=== PATIENT | male | born 1950 | race Caucasian/White ===

== ENCOUNTER → 2017-11-04 | Outpatient (CLI) | payer OTHER ==
[2015-02-20 16:09] VITALS: BP 124/70
[~2017-11-04] MED LIST: AMLO10TA6 PO; ASPI-612 PO; LISI-334 PO
--- NOTE | 2017-11-04 16:40 | KCIC ---
EXAM: AP, oblique and lateral views of the left ankle DATE: 11/04/2017 12:00 AM INDICATION: Chronic left ankle pain and swelling. No injury COMPARISON: No Prior FINDINGS/ IMPRESSION: No evidence of acute fracture or dislocation. Talar tilt with left knee joint degenerative change resulting in lateral tibiotalar joint space narrowing and widening of the lateral mortise. Proliferative changes are seen at the inferior pole of the medial malleolus likely from old injury. Small anterior ankle joint osteophytes are seen. Small midfoot osteophytes are also noted. Electronically signed by: Jose Juan Benson MD (11/04/2017 4:36 PM) [facility]
== END | disposition home or self-care (01) ==
LOC: KCIC 15:40
PROVIDERS: ATTEND Family Medicine
DX: M25.775 Osteophyte, left foot (principal); M25.772 Osteophyte, left ankle; M19.072 Primary osteoarthritis, left ankle and foot; I10 Essential (primary) hypertension; Z82.49 Family history of ischemic heart disease and other diseases of the circulatory system; Z83.3 Family history of diabetes mellitus; Z80.7 Family history of other malignant neoplasms of lymphoid, hematopoietic and related tissues
CPT/HCPCS: 73610

== ENCOUNTER → 2018-12-01 | Outpatient (CLI) | payer MEDICARE ==
[2015-02-20 16:09] VITALS: BP 124/70
[~2018-12-01] MED LIST changes: -AMLO10TA6 PO; +AMLO10TA8 PO
--- NOTE | 2018-12-01 17:26 | KCIC ---
CT study of the right foot without contrast CT study of the right ankle without contrast Clinical indications: Patient feels a bump on foot. Right foot pain. TECHNIQUE: Noncontrast helical CT scanning of the right foot and ankle were performed. Multiplanar 2-D reconstructions were generated. PQRS compliance Statement One or more of the following individualized dose reduction techniques were utilized for this study: 1. Automated exposure control 2. Adjustment of the mA and/or kV according to patient size 3. Use of iterative reconstruction technique CT STUDY OF THE RIGHT ANKLE: No acute fracture or dislocation or lytic process is seen. Mortise ankle joint is intact. There is mild degenerative spurring of the tibiotalar joint compartment. An os trigonum is seen as a normal anatomical variant. However, there is a small radiopaque loose body within the posterior tibiotalar joint recess measuring 5 mm. There is mild degenerative spurring of the talofibular joint compartment. There is a small loose body just lateral to the talus and distal to the right fibula measuring 1.5 mm. The Achilles tendon is intact. No soft tissue mass or abscess is seen. IMPRESSION: No acute osseous abnormality. 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 CT STUDY OF THE RIGHT FOOT: A BB is placed on the palpable lump of the right foot. This corresponds to a ganglion cyst measuring 7 Hounsfield units. It measures 2.6 cm in transverse dimension and 1.2 cm in AP dimension and 3.0 cm in longitudinal dimension. It is contiguous with the extensor hallucis longus tendon. No acute fracture or dislocation or lytic process is evident. No periosteal reaction is evident. There is degenerative osteoarthritis of the first and second and third tarsal metatarsal joints. There are degenerative cysts of the proximal second metatarsal bone and the distal second cuneiform bone. There is mild degenerative spurring of the talonavicular joint and the navicular cuneiform joint. Mild degenerative spurring of the fourth tarsal metatarsal joint is seen. There is moderate degenerative spurring and joint space narrowing of the first metatarsal phalangeal joint and the joint space between the distal first metatarsal bone and the sesamoid bones. There is a bipartite medial sesamoid bone which is a normal anatomical variant. No erosive arthropathy is evident. There is mild degenerative osteoarthritis of the posterior subtalar joint and the anteromedial subtalar joint. Small plantar spur of the calcaneus is seen. Small posterior spur of the calcaneus is seen at the attachment of the Achilles tendon. No osseous tarsal coalition is seen. IMPRESSION: Palpable lump of the dorsal aspect of the right foot corresponds to a ganglion cyst. Primary degenerative osteoarthritis of multiple joints as discussed above. No acute fracture. Electronically signed by: Tex Head MD (12/01/2018 5:23 PM) [facility]
== END | disposition home or self-care (01) ==
LOC: KCIC CT 12:52
PROVIDERS: ATTEND Family Medicine
DX: M19.071 Primary osteoarthritis, right ankle and foot (principal); M67.471 Ganglion, right ankle and foot; M77.31 Calcaneal spur, right foot
CPT/HCPCS: 73700

== ENCOUNTER → 2020-11-22 | Outpatient (CLI) | payer MEDICARE ==
[2015-02-20 16:09] VITALS: BP 124/70
[~2020-11-22] MED LIST changes: +AMLO-187 PO; -AMLO10TA8 PO; -ASPI-612 PO; +ASPI-886 PO; -LISI-334 PO; +LISI20TA18 PO
--- NOTE | 2020-11-22 16:15 | CARD ---
MR#: [id number] Date of Study: 11/22/2020 Ordering Physician: JAMAL MAHMOOD, Referring Physician: JAMAL MAHMOOD Tech: Elly Kuo [facility] APPROVED REPORT EXAM: Two-dimensional and M-mode echocardiogram with Doppler and color Doppler. Other Information Quality : AverageHR: 52bpm Rhythm : NSR INDICATION Dyspnea RISK FACTORS Hypertension Obesity 2D DIMENSIONS RVDd5.0 (2.9-3.5cm)Left Atrium(2D)4.5 (1.6-4.0cm) IVSd1.4 (0.7-1.1cm)Aortic Root(2D)4.2 (2.0-3.7cm) LVDd5.7 (3.9-5.9cm)LVOT Diameter2.9 (1.8-2.4cm) PWd1.4 (0.7-1.1cm)LVDs3.0 (2.5-4.0cm) FS (%) 47.5 %SV126.0 ml LVEF(%)78.3 (>50%) Aortic Valve AoV Peak Bethel.138.8cm/sAoV VTI34.7cm AO Peak GR.7.7mmHgLVOT Peak Bethel.114.8cm/s AO Mean GR.4mmHgAVA (VMAX)5.43cm2 Mitral Valve MV E Adzihfoj61.8cm/sMV DECEL QHBC758id MV A Iojvagkc80.7cm/sE/A Ratio1.3 Pulmonary Valve PV Peak Gorxlmzx993.7cm/s Tricuspid Valve TR P. Ngstlnqx051co/sTR Peak Gr.22mmHg LEFT VENTRICLE The Left Ventricle is mildly dilated. There is mild concentric left ventricular hypertrophy. The left ventricular systolic function is normal and the ejection fraction is within normal range. Estimated ejection 60%. There is normal LV segmental wall motion. The left ventricular diastolic function and filling is normal for age. RIGHT VENTRICLE The right ventricle is normal size. There is normal right ventricular wall thickness. The right ventr icular systolic function is normal. ATRIA The left atrium size is normal. The right atrium is mildly dilated. The interatrial septum is intact with no evidence for an atrial septal defect or patent foramen ovale as noted on 2-D or Doppler imagi ng. AORTIC VALVE The aortic valve is normal in structure and function. Doppler and Color Flow revealed no significant aortic regurgitation. There is no significant aortic valvular stenosis. MITRAL VALVE The mitral valve is normal in structure and function. There is no evidence of mitral valve prolapse. There is no mitral valve stenosis. Doppler and Color-flow revealed trace to mild mitral regurgitation . TRICUSPID VALVE The tricuspid valve is normal in structure and function. Doppler and Color Flow revealed trace tricus pid regurgitation. Estimated PAP 25 There is no tricuspid valve stenosis. PULMONIC VALVE Doppler and Color Flow revealed mild pulmonic valvular regurgitation. There is no pulmonic valvular s tenosis. GREAT VESSELS The aortic root is normal in size. The ascending aorta is normal in size. The IVC is normal in size a nd collapses >50% with inspiration. PERICARDIAL EFFUSION There is no evidence of significant pericardial effusion. Critical Notification Critical Value: No <Conclusion> The left ventricular systolic function is normal and the ejection fraction is within normal range. Estimated ejection 60%. There is normal LV segmental wall motion. Signed by : Mehul Sheth, Electronically Approved : 11/22/2020 16:14:31
== END ==
LOC: NM 07:52
PROVIDERS: ATTEND Internal Medicine Cardiovascular Disease
DX: I08.8 Other rheumatic multiple valve diseases (principal); R06.09 Other forms of dyspnea
CPT/HCPCS: 93306

== ENCOUNTER → 2020-11-29 | Outpatient (CLI) | payer MEDICARE ==
[2015-02-20 16:09] VITALS: BP 124/70
[~2020-11-29] MED LIST changes: +REGADENOSON 0.4 MG/5 ML DISP.SYRIN. IV ONE
--- NOTE | 2020-11-29 14:08 | RAD ---
MR#: [id number] Date of Study: 11/29/2020 Ordering Physician: JAMAL MAHMOOD Referring Physician: FRANSICO AQUINO Tech: JEEVAN Crooks APPROVED REPORT Test Type: Pharmacological Stress Nurse/Tech: Park Francis RN Test Indications: Chest Pain Cardiac History: HTN, See EMR. Medications: ASA, See EMR. Medical History: See EMR. Resting ECG: SR Resting Heart Rate: 57 bpm Resting Blood Pressure: 123/72mmHg Pretest Chest Pain: No chest pain Nurse/Tech Notes Lungs CTA, Heart tones regular. Consent: The procedure was explained to the patient in lay terms. Informed consent was witnessed. Rd eout was entered into [employer] App. History and Stress Test performed by RT Rebecca (Yogesh) (N) Pharm. Details Pharmacologic stress testing was performed using 0.4mg per 5ml of regadenoson given intravenously ove r 7-10 seconds. Stress Symptoms No chest pain or symptoms. POST EXERCISE Reason for Termination: Infusion complete Max HR: 57 bpm Max Blood Pressure: 121/48mmHg Blood Pressure response to exercise: Normal blood pressure response during stress. Heart Rate response to exercise: WNL Chest Pain: No. Arrhythmia: No. ST Change: No. INTERPRETATION Stress EKG Conclusion: Baseline EKG showed sinus rhythm. No ischemic changes at peak stress. No arr hythmias. Imaging Protocol IMAGE PROTOCOL: Rest Tc-99m/stress Tc-99m 1 day Rest: Stress: Viability: Radiopharm.Tc99m KlwojrwucRk45n Sestamibi Zvez57dYp 33mCi Duration 15min. 13min. Img Date 11/29/2020 11/29/2020 Inj-Img Sxvp33whq. 60min. STRESS DATA End Diast. Vol.138.0mlLVEDV index BSA58.0ml End Syst. Vol.65.0mlLVESV index BSA27.0ml Myocardial Rats700.0gEject. Oormloqk06.0% Stress Scores Regional WT2.00Summed WT17.00 Regional WM0.00Summed WM6.00 Study quality was good. Left Ventricular size was Normal at Rest and Stress. Lung uptake was . Left Ventricular ejection fraction is 52%. The rest and stress images show normal perfusion, normal contraction and thickening. LV Perf. Quant 17 Seg. SSS3.00 17 Seg. SRS6.00 17 Seg. SDS0.00 Stress Defect Extent (% LAD)0.00Rest Defect Extent (% LAD)3.80Rev. Defect Extent (% LAD)0.00 Stress Defect Extent (% LCX) 0.00Rest Defect Extent (% LCX)3.80Rev. Defect Extent (% LCX)0.00 Stress Defect Extent (% RCA)2.20Rest Defect Extent (% RCA)12.20Rev. Defect Extent (% RCA)0.00 Stress Defect Extent (% EMORY)1.30Rest Defect Extent (% EMORY)11.30Rev. Defect Extent (% EMORY)0.00 Conclusion 1. Regadenoson cardioisotope stress test did not show any evidence of ischemia or infarct. 2. Borderline normal left ventricular systolic function with ejection fraction calculated at 52%. 3. Low risk for cardiac events. Signed by : Jamal Mahmood, Electronically Approved : 11/29/2020 14:07:42
== END ==
LOC: NM 09:31
PROVIDERS: ATTEND Internal Medicine Cardiovascular Disease
DX: R07.9 Chest pain, unspecified (principal)
CPT/HCPCS: 78452; 93017; A9500; J2785

== ENCOUNTER → 2020-12-06 | Outpatient (CLI) | payer MEDICARE ==
[2015-02-20 16:09] VITALS: BP 124/70
[~2020-12-06] MED LIST changes: -REGADENOSON 0.4 MG/5 ML DISP.SYRIN. IV ONE
--- NOTE | 2020-12-07 00:03 | KCIC ---
EXAMINATION: XR KNEE _3 VIEWS_LT CLINICAL HISTORY: Left knee pain. Recent trip, landed on left knee. Anterior ST mass below patella. TECHNIQUE: XR KNEE _3 VIEWS_LT Number of Images/Views: 3 COMPARISON: None FINDINGS: Xvxe-gq-ftxgwodj medial compartment narrowing. No acute fracture. No significant joint effusion. Incr eased density in the subcutaneous soft tissues overlying the tibial tuberosity, compatible with super ficial infrapatellar bursitis. IMPRESSION: Mild degenerative changes medial compartment left knee. Findings compatible with superficial infrapatellar bursitis as described, correlate clinically. Electronically signed by: Juan Pablo Levin DO (12/07/2020 12:00 AM) [facility]
== END ==
LOC: KCIC 15:21
PROVIDERS: ATTEND Family Medicine
DX: M70.52 Other bursitis of knee, left knee (principal); Y93.89 Activity, other specified
CPT/HCPCS: 73562

== ENCOUNTER → 2021-01-22 | Outpatient (CLI) | payer MEDICARE ==
[2015-02-20 16:09] VITALS: BP 124/70
--- NOTE | 2021-01-23 12:06 | KCIC ---
EXAM: XR BILATERAL HIP (WITH OR WITHOUT PELVIS) LEFT 2 VIEWS 01/22/2021 4:10 PM CLINICAL INDICATION: Left hip pain for one day, no injury. Hurts to bear weight COMPARISON: None TECHNIQUE: AP view of the pelvis. AP and frog-leg lateral view of the left hip. FINDINGS: No acute fracture. Alignment is normal. The hip joint spaces are maintained. Minimal osteo phyte formation of the hips. Pubic symphysis and sacroiliac joints are maintained. IMPRESSION: No acute osseous abnormality of the left hip or pelvis. Electronically signed by: Luly Jarquin MD (01/23/2021 12:04 PM) [id number]
== END ==
LOC: KCIC 15:35
PROVIDERS: ATTEND Family Medicine
DX: M25.552 Pain in left hip (principal)
CPT/HCPCS: 73502